=== PATIENT | female | born 1995 | race African-American/Black ===

== ENCOUNTER 2017-03-01 09:41 | Emergency (ER) | payer SELFPAY ==
[~2017-03-01] VITALS: Ht 162.6 cm; Wt 121.6 kg
[2017-03-01 10:10] VITALS: BP 155/75
[2017-03-01] MEDS ORDERED: DEXAMETHASONE 4 MG TABLET PO ONE (10:48)
[2017-03-01] MEDS ORDERED: AMOX500C PO (10:49)
--- NOTE | 2017-03-01 10:50 | PHYS DOC ---
Past Medical History Past Medical History: No Pertinent History Past Surgical History: No Surgical History Alcohol Use: None Drug Use: None Adult General Chief Complaint Chief Complaint: SORE THROAT HPI HPI Patient is a 21 year old female presents to the emergency department stating that she's had a sore throat since Wednesday or Wednesday. She states that she has having increased difficulty with trying to swallow although she is able to maintain her own saliva. Patient states she believes she had a fever at home but is unsure. She does state she's had chills. She denies any nausea vomiting cough or congestion. Patient states her last menstrual period was around the 12th of this month. She denies any chances of . Review of Systems Review of Systems Constitutional: Denies fever or chills [] Eyes: Denies change in visual acuity, redness, or eye pain [] HENT: Denies nasal congestion complaint of sore throat [] Respiratory: Denies cough or shortness of breath [] Cardiovascular: No additional information not addressed in HPI [] GI: Denies abdominal pain, nausea, vomiting, bloody stools or diarrhea [] : Denies dysuria or hematuria [] Musculoskeletal: Denies back pain or joint pain [] Integument: Denies rash or skin lesions [] Neurologic: Denies headache, focal weakness or sensory changes [] Endocrine: Denies polyuria or polydipsia [] Allergies Allergies Allergies Coded Allergies Type Severity Reaction Last Updated Verified No Known Drug Allergies 06/06/15 No Physical Exam Physical Exam Constitutional: Well developed, well nourished, no acute distress, non-toxic appearance. [] HENT: Normocephalic, atraumatic, bilateral external ears normal, oropharynx moist, no oral exudates, nose normal. Bilateral tympanic membranes appear to be normal. Throat with redness erythematous exudate noted no uvula deviation noted. No anterior cervical adenopathy noted. Eyes: PERRLA, EOMI, conjunctiva normal, no discharge. [] Neck: Normal range of motion, no tenderness, supple, no stridor. [] Cardiovascular:Heart rate regular rhythm, no murmur [] Lungs & Thorax: Bilateral breath sounds clear to auscultation [] Skin: Warm, dry, no erythema, no rash. [] Back: No tenderness Extremities: No tenderness, no cyanosis, no clubbing, ROM intact, no edema. [] Neurologic: Alert and oriented X 3, normal motor function, normal sensory function, no focal deficits noted. [] Psychologic: Affect normal, judgement normal, mood normal. [] Current Patient Data Vital Signs Vital Signs Date Time Temp Pulse Resp B/P (MAP) Pulse Ox O2 Delivery O2 Flow Rate FiO2 03/01/17 10:10 98.9 67 18 97 Room Air 98.9 EKG EKG [] Radiology/Procedures Radiology/Procedures [] Course & Med Decision Making Course & Med Decision Making Pertinent Labs and Imaging studies reviewed. (See chart for details) Rapid strep was negative. Patient will be placed on amoxicillin as the throat appears very irritated. Patient immediately stated to get a work note. Patient was instructed to show will get a work note today she may return to work tomorrow also spoke with patient regards to drinking plenty of fluids Tylenol and ibuprofen for pain and discomfort. Antibiotic as prescribed. Patient was provided with signs and symptoms to return back to the emergency department. Patient will be discharged home in stable condition. [] Dragon Disclaimer Dragon Disclaimer This electronic medical record was generated, in whole or in part, using a voice recognition dictation system. Departure Departure Impression: Primary Impression: Pharyngitis Disposition: 01 HOME, SELF-CARE Condition: STABLE Referrals: NO PCP (PCP) Patient Instructions: Viral and Bacterial Pharyngitis, [id number] Additional Instructions: Antibiotics as prescribed. Drink plenty of fluids. Tylenol or ibuprofen for fever chills or generalized body aches and discomfort. Follow-up to primary care physician in the next 5-7 days. Return back to emergency department sign symptoms of become worse. Scripts Amoxicillin (AMOXICILLIN) 500 Mg Capsule 1 CAP PO TID, #30 CAP Prov: ABHI GLORIA [employer] 03/01/17 ABHI GLORIA [employer] Mar 01, 2017 10:50
[2017-03-01 10:54] LABS: NEGATIVE OBC STREP NEG; POSITIVE OBC STREP POS
== END 2017-03-01 10:55 | disposition home or self-care (01) ==
LOC: ER 09:41
DX: J02.9 Acute pharyngitis, unspecified (principal)
CPT/HCPCS: 87070; 87880; 99283; J8540

== ENCOUNTER 2017-05-06 17:00 | Emergency (ER) | payer SELFPAY ==
[~2017-05-06] VITALS: Ht 162.6 cm; Wt 118.8 kg
[~2017-05-06 17:00] MED LIST: AMOX500C PO
[2017-05-06 17:05] VITALS: BP 147/77
--- NOTE | 2017-05-06 17:26 | PHYS DOC ---
Past Medical History Past Medical History: No Pertinent History Past Surgical History: No Surgical History Alcohol Use: None Drug Use: None Adult General Chief Complaint Chief Complaint: CHEST PAIN HPI HPI Patient is a 22 year old female who presents with a compressor chest pain that occurred when she was at work, is left-sided. No radiation of pain, not associated symptoms. Patient denies any other complaints. Patient has no recent illnesses. No family history of heart disease at an early age. Review of Systems Review of Systems Constitutional: Denies fever or chills [] Eyes: Denies change in visual acuity, redness, or eye pain [] HENT: Denies nasal congestion or sore throat [] Respiratory: Denies cough or shortness of breath [] Cardiovascular: No additional information not addressed in HPI [] GI: Denies abdominal pain, Musculoskeletal: Denies back pain or joint pain [] Integument: Denies rash or skin lesions [] Neurologic: Denies headache, focal weakness or sensory changes [] Other systems reviewed and found to be negative unless otherwise stated Allergies Allergies Allergies Coded Allergies Type Severity Reaction Last Updated Verified No Known Drug Allergies 06/06/15 No Physical Exam Physical Exam Constitutional: Well developed, well nourished, no acute distress, non-toxic appearance. [] HENT: Normocephalic, atraumatic, nose normal. [] Eyes: EOMI, conjunctiva normal, no discharge. [] Neck: Normal range of motion, no tenderness, supple, no stridor. [] Cardiovascular:Heart rate regular rhythm, no murmur, not tachycardic, normal perfusion Lungs & Thorax: Bilateral breath sounds clear to auscultation, no tachypnea Abdomen: Bowel sounds normal, soft, no tenderness, no masses, no pulsatile masses. [] Skin: Warm, dry, no erythema, no rash. [] Back: No tenderness, no CVA tenderness. [] Extremities: No tenderness, no cyanosis, no signs of DVT, ROM intact, no edema. [] Neurologic: Alert and oriented X 3, normal motor function, ambulated with normal gait without assistance in the ED ,no focal deficits noted. [] Psychologic: Affect normal, judgement normal, mood normal. [] Current Patient Data Vital Signs Vital Signs Date Time Temp Pulse Resp B/P (MAP) Pulse Ox O2 Delivery O2 Flow Rate FiO2 05/06/17 17:05 97.9 59 16 147/77 (100) 97 Room Air 97.9 Lab Values Laboratory Tests Test 05/06/17 16:25 POC Urine HCG, Qualitative Hcg negative (Negative) EKG EKG 1709 56, sinus bradycardia, no stemi[] Radiology/Procedures Radiology/Procedures preliminary read no acute disease[] Course & Med Decision Making Course & Med Decision Making Pertinent Labs and Imaging studies reviewed. (See chart for details) PERC rule: 0 criteria No need for further workup, as <2% chance of PE. If no criteria are positive and clinicians pre-test probability is <15%, PERC Rule criteria are satisfied. [] Dragon Disclaimer Dragon Disclaimer This electronic medical record was generated, in whole or in part, using a voice recognition dictation system. Departure Departure Impression: Primary Impression: Chest pain of uncertain etiology Disposition: 01 HOME, SELF-CARE Condition: STABLE Referrals: NO PCP (PCP) please follow up with your pcp for recheck and re-evaluation in 1-2 days. Return to ED immediately if symptoms worsen, change or other concening symptoms develop. We will also provide you with a list of clinics in case you need to establish care. Patient Instructions: Chest Pain (Nonspecific) Joesph HANEY MD May 06, 2017 17:26
--- NOTE | 2017-05-06 17:29 | EKG ---
[facility] [address] [place] [address] Test Date: 2017-05-06 Test Time: 17:02:50 Pat Name: ZANE DALTON Department: Room: Gender: F Mobile [employer] Developer: : 1995 Requested By: Joesph HANEY Order Number: [id number] Reading MD: Grover Souza Measurements Intervals [place] Rate: 56 P: 39 DC: 170 QRS: 15 QRSD: 88 T: 25 QT: 394 QTc: 383 Interpretive Statements SINUS RHYTHM Electronically Signed On 05-11-2017 8:45:55 CDT by Grover Souza
--- NOTE | 2017-05-07 08:11 | RAD ---
Exam performed: 2 views of the chest. Indication: Atraumatic chest pain Date of Service:05/06/2017 7:03 PM . Comparison : None available Findings: PA and lateral radiographs of the chest reveal a normal cardiomediastinal contour. The lungs are clear. No pleural fluid is seen. The visualized osseous structures are unremarkable. Impression: Radiographically normal chest.
== END 2017-05-06 18:00 | disposition home or self-care (01) ==
LOC: ER 17:00
DX: R07.89 Other chest pain (principal)
CPT/HCPCS: 71020; 81025; 93005; 99284-25

== ENCOUNTER 2017-08-10 09:39 | Emergency (ER) | payer SELFPAY ==
[2017-08-10 09:45] VITALS: BP 153/85
--- NOTE | 2017-08-10 09:58 | PHYS DOC ---
Past Medical History Past Medical History: No Pertinent History Past Surgical History: No Surgical History Alcohol Use: Rarely Drug Use: None Adult General Chief Complaint Chief Complaint: NAUSEA/VOMITING/DIARRHA HPI HPI Patient is a 22 year old female presents the ED complaining of nausea off and on for one month. States her last menstrual period was July 18. States the nausea is worse after she eats. States she does not vomit she just has the sensation to vomit and complains of reflux symptoms. Denies abdominal pain, fever, vomiting, weakness, dizziness, chest pain, shortness of breath, cough, body aches, or syncope. Review of Systems Review of Systems Constitutional: Denies fever or chills [] Eyes: Denies change in visual acuity, redness, or eye pain [] HENT: Denies nasal congestion or sore throat [] Respiratory: Denies cough or shortness of breath [] Cardiovascular: No additional information not addressed in HPI [] GI: Complains of nausea. Denies abdominal pain, vomiting, bloody stools or diarrhea [] : Denies dysuria or hematuria [] Musculoskeletal: Denies back pain or joint pain [] Integument: Denies rash or skin lesions [] Neurologic: Denies headache, focal weakness or sensory changes [] Endocrine: Denies polyuria or polydipsia [] All other systems were reviewed and found to be within normal limits, except as documented in this note. Current Medications Current Medications Current Medications Medications (Trade) Dose Ordered Sig/Aishwarya Start Time Stop Time Status Last Admin Dose Admin Famotidine (Pepcid) 20 mg 1X ONCE 08/10/17 10:00 08/10/17 10:01 DC 08/10/17 10:00 20 MG Ondansetron HCl (Zofran Odt) 4 mg 1X ONCE 08/10/17 10:00 08/10/17 10:01 DC 08/10/17 10:00 4 MG Allergies Allergies Allergies Coded Allergies Type Severity Reaction Last Updated Verified No Known Drug Allergies 06/06/15 No Physical Exam Physical Exam Constitutional: Well developed, well nourished, no acute distress, non-toxic appearance. [] HENT: Normocephalic, atraumatic, bilateral external ears normal, oropharynx moist, no oral exudates, nose normal. [] Eyes: PERRLA, EOMI, conjunctiva normal, no discharge. [] Neck: Normal range of motion, no tenderness, supple, no stridor. [] Cardiovascular:Heart rate regular rhythm, no murmur [] Lungs & Thorax: Bilateral breath sounds clear to auscultation [] Abdomen: Bowel sounds normal, soft, no tenderness, no masses, no pulsatile masses. [] Skin: Warm, dry, no erythema, no rash. [] Back: No tenderness, no CVA tenderness. [] Extremities: No tenderness, no cyanosis, no clubbing, ROM intact, no edema. [] Neurologic: Alert and oriented X 3, normal motor function, normal sensory function, no focal deficits noted. [] Psychologic: Affect normal, judgement normal, mood normal. [] Current Patient Data Vital Signs Vital Signs Date Time Temp Pulse Resp B/P (MAP) Pulse Ox O2 Delivery O2 Flow Rate FiO2 08/10/17 09:45 98.6 79 18 99 Room Air 98.6 Lab Values Laboratory Tests Test 08/10/17 09:48 08/10/17 09:50 POC Urine HCG, Qualitative Hcg negative (Negative) Urine Collection Type Unknown Urine Color Yellow Urine Clarity Clear Urine pH 7.5 Urine Specific [place] 1.025 Urine Protein Negative mg/dL (NEG-TRACE) Urine Glucose (UA) Negative mg/dL (NEG) Urine Ketones (Stick) 40 mg/dL (NEG) Urine Blood Negative (NEG) Urine Nitrite Negative (NEG) Urine Bilirubin Negative (NEG) Urine Urobilinogen Dipstick 1.0 mg/dL (0.2 mg/dL) Urine Leukocyte Esterase Negative (NEG) Urine RBC Occ /HPF (0-2) Urine WBC 1-4 /HPF (0-4) Urine Squamous Epithelial Cells Mod /LPF Urine Bacteria Few /HPF (0-FEW) EKG EKG [] Radiology/Procedures Radiology/Procedures [] Course & Med Decision Making Course & Med Decision Making Pertinent Labs and Imaging studies reviewed. (See chart for details) []Patient's symptoms resolved. States she is feeling much better. Abdomen is soft nontender nondistended. No peritoneal signs. Discussed follow-up with PCP in one to 2 days. Provided contact information/education. Discussed reasons to return to the ED. Patient understands and agrees with plan. Dragon Disclaimer Dragon Disclaimer This electronic medical record was generated, in whole or in part, using a voice recognition dictation system. Departure Departure Impression: Primary Impression: Nausea Disposition: 01 HOME, SELF-CARE Condition: IMPROVED Referrals: NO PCP (PCP) MARVA DAVIDSON MD Patient Instructions: Nausea, Adult Scripts Ondansetron (ZOFRAN ODT) 4 Mg Tab.rapdis 1 TAB SL Q8HRS, #10 TAB Prov: ELIAS TRUJILLO 08/10/17 Famotidine (PEPCID) 20 Mg Tablet 20 MG PO BID, #20 TAB Prov: ELIAS TRUJILLO 08/10/17 ELIAS TRUJILLO Aug 10, 2017 09:57
[2017-08-10] MEDS ORDERED: ONDANSETRON ODT 4 MG TAB.RAPDIS. PO ONE (10:00)
[2017-08-10] MEDS ORDERED: FAMOTIDINE 20 MG TABLET. PO ONE (10:00)
[2017-08-10 10:12] LABS: BILIRUBIN,URINE NEGATIVE (NEG); GLUCOSE,URINE NEGATIVE (NEG); NITRITE,URINE NEGATIVE (NEG); PH,URINE 7.5; PROTEIN,URINE NEGATIVE (NEG-TRACE)
[2017-08-10 10:27] LABS: SQUAMOUS EPITHELIAL CELL,UR MOD /LPF
[2017-08-10 10:28] LABS: BACTERIA,URINE FEW /HPF (0-FEW); RBC,URINE OCC /HPF (0-2)
[2017-08-10] MEDS ORDERED: FAMO-63 PO (10:55)
[2017-08-10] MEDS ORDERED: ONDA4TAB10 SL (10:55)
== END 2017-08-10 11:11 | disposition home or self-care (01) ==
LOC: ER 09:39
DX: R11.0 Nausea (principal)
CPT/HCPCS: 81001; 81025; 99283; Q0162

== ENCOUNTER 2017-10-01 07:16 | Emergency (ER) | payer SELFPAY, OTHER ==
[2017-10-01] MEDS: IBUPROFEN 600 MG TABLET. PO (08:06)
== END 2017-10-01 08:23 | disposition home or self-care (01) ==
LOC: ER 07:16
DX: B34.9 Viral infection, unspecified (principal)
CPT/HCPCS: 99282

== ENCOUNTER 2018-09-04 14:52 | Emergency (ER) | payer SELFPAY ==
[2017-10-01 07:35] VITALS: BP 169/79
[~2018-09-04] VITALS: Ht 162.6 cm; Wt 104.3 kg
[~2018-09-04 14:52] MED LIST changes: +FAMO-63 PO; +ONDA4TAB10 SL
[2018-09-04] MEDS ORDERED: IBUP-571 PO (16:14)
--- NOTE | 2018-09-04 16:15 | PHYS DOC ---
Past Medical History Past Medical History: No Pertinent History Past Surgical History: No Surgical History Alcohol Use: Occasionally Drug Use: None Adult General Chief Complaint Chief Complaint: VAGINAL BLEEDING HPI HPI Patient is a 23 year old AA female who presents to the ER with complaints of lower abdominal cramps and vaginal bleeding that started yesterday. Pt states her LMP was on 08/06/18 and reports concern that she is having 2 menstrual cycles in the same month. She denies any irregular vaginal discharge prior to onset of bleeding, dysuria, hematuria, back pain, vaginal odor, vaginal itching , or fever. Pt denies any concerns of STIs. She states that her menstrual cycles are usually irregular. Review of Systems Review of Systems Constitutional: Denies fever or chills [] HENT: Denies nasal congestion or sore throat [] Respiratory: Denies cough or shortness of breath [] Cardiovascular: No additional information not addressed in HPI [] GI: Denies nausea, vomiting, or diarrhea; the history of present illness [] : Denies dysuria or hematuria; see history of present illness [] Musculoskeletal: Denies back pain or joint pain [] Integument: Denies rash or skin lesions [] Neurologic: Denies headache, focal weakness or sensory changes [] All other systems were reviewed and found to be within normal limits, except as documented in this note. Allergies Allergies Allergies Coded Allergies Type Severity Reaction Last Updated Verified No Known Drug Allergies 06/06/15 No Physical Exam Physical Exam Constitutional: Well developed, well nourished, no acute distress, non-toxic appearance obese. [] HENT: Normocephalic, atraumatic, bilateral external ears normal, oropharynx moist, no oral exudates, nose normal. [] Eyes: conjunctiva normal, no discharge. [] Abdomen: Bowel sounds normal, soft, no tenderness, no masses, no pulsatile masses. [] Skin: Warm, dry, no erythema, no rash. [] Back: No tenderness, no CVA tenderness. [] Extremities: No cyanosis, no clubbing, ROM intact, no edema. [] Neurologic: Alert and oriented X 3, normal motor function, normal sensory function, no focal deficits noted. [] Psychologic: Affect normal, judgement normal, mood normal. [] Current Patient Data Vital Signs Vital Signs Date Time Temp Pulse Resp B/P (MAP) Pulse Ox O2 Delivery O2 Flow Rate FiO2 12/30/18 15:15 98.5 64 16 141/83 (102) 99 Room Air 98.5 Lab Values Laboratory Tests Test 09/04/18 15:19 POC Urine HCG, Qualitative Hcg negative (Negative) EKG EKG [] Radiology/Procedures Radiology/Procedures [] Course & Med Decision Making Course & Med Decision Making Pertinent Labs and Imaging studies reviewed. (See chart for details) Patient declined a pelvic exam. Education was provided about the duration of a normal menstrual cycle. Urine testing was negative. Prescription was written for ibuprofen 600 mg 4 times a day when necessary. 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 [] Dragon Disclaimer Dragon Disclaimer This electronic medical record was generated, in whole or in part, using a voice recognition dictation system. Departure Departure Impression: Primary Impression: Dysmenorrhea, unspecified Disposition: HOME, SELF-CARE Condition: STABLE Referrals: NO PCP (PCP) Patient Instructions: Dysmenorrhea, [id number] Additional Instructions: Fill prescription and use as directed. Recommend you keep track of your menstrual cycles and symptoms using a period tracker. Return to ER if symptoms worsen, follow up with your primary care doctor as needed. Scripts Ibuprofen (Ibu) 600 Mg Tablet 600 MG PO QID PRN for PAIN for 5 Days, #20 TAB 0 Refills Prov: COLETTE LIMON APRN 09/04/18 COLETTE LIMON APRN Sep 04, 2018 16:15
== END 2018-09-04 16:37 | disposition home or self-care (01) ==
LOC: ER 14:52
DX: N94.6 Dysmenorrhea, unspecified (principal); R10.30 Lower abdominal pain, unspecified
CPT/HCPCS: 81025; 99282